=== PATIENT | male | born 1990 ===

== ENCOUNTER 2018-11-25 14:35 | Emergency (ER) | payer BC ==
[2018-11-25 14:57] VITALS: BMI 28.5
[2018-11-25 15:56] VITALS: O2SAT 99
--- NOTE | 2018-11-25 16:32 | C.PDOC ---
History Of Present Illness 28 y/o male presents to the ED with 2 day history of right-sided stabbing throat pain. Also reports pain radiating to the right outer ear. States he has been unable to tolerate normal diet the last few days, although he is drinking liquids today. Patient reports nausea and vomiting for the last 2 days. Admits he had no BM in the past 2 days, but had one this morning. Currently he denies any nausea, vomiting, diarrhea, or abdominal pain. Also reports fevers, chills, and cold sweats since the pain began, along with a tension headache. He denies any congestion, cough, SOB, or chest pain. Reports he is UTD on vaccines. Time Seen by Provider: 11/25/18 15:08 Chief Complaint (Nursing): ENT Problem History Per: Patient History/Exam Limitations: None Onset/Duration Of Symptoms: Days Current Symptoms Are (Timing): Still Present Symptoms Have Been: Continuous Past Medical History Reviewed: Historical Data, Nursing Documentation, Vital Signs Vital Signs: Last Vital Signs Temp 99 F 11/25/18 15:56 Pulse 104 H 11/25/18 15:56 Resp 17 11/25/18 15:56 BP 141/81 11/25/18 15:56 Pulse Ox 99 11/25/18 15:56 - Medical History PMH: No Chronic Diseases Surgical History: No Surg Hx Family History: States: No Known Family Hx - Social History Hx Tobacco Use: Yes Hx Alcohol Use: Yes Hx Substance Use: No - Immunization History Hx Tetanus Toxoid Vaccination: No Hx Influenza Vaccination: No Hx Pneumococcal Vaccination: No Review Of Systems Except As Marked, All Systems Reviewed And Found Negative. Constitutional: Positive for: Fever, Chills, Sweats ENT: Positive for: Ear Pain (Right), Throat Pain (Right). Negative for: Nose Discharge, Nose Congestion Respiratory: Negative for: Cough, Shortness of Breath Gastrointestinal: Negative for: Nausea (resolved), Vomiting (resolved), Abdominal Pain, Diarrhea Musculoskeletal: Negative for: Neck Pain Skin: Negative for: Rash Neurological: Positive for: Headache. Negative for: Weakness, Numbness, Dizziness Physical Exam - Physical Exam Appears: Non-toxic, No Acute Distress Skin: Warm, Dry, No Rash Head: Atraumatic, Normacephalic, Other (No sinus tenderness) Eye(s): bilateral: Normal Inspection, PERRL, EOMI Ear(s): Bilateral: Normal Oral Mucosa: Moist Throat: Erythema (+ pharyngeal erythema), No Exudate, Other (Uvula midline) Neck: Supple Lymphatic: Adenopathy (+ enlarged cervical/anterior lymph nodes on the right, TTP) Cardiovascular: Rhythm Regular (but slightly tachycardic), No Murmur Respiratory: Normal Breath Sounds, No Rales, No Rhonchi, No Wheezing Extremity: Bilateral: Atraumatic, Normal Color And Temperature, Normal ROM Neurological/Psych: Oriented x3, Normal Speech ED Course And Treatment O2 Sat by Pulse Oximetry: 99 (RA) Pulse Ox Interpretation: Normal Medical Decision Making Medical Decision Making: Impression: Throat pain, Fever Plan: Tylenol 975 mg PO given triage. Will treat patient for the flu and strep. Tamiflu and Penicillin VK given PO in the ED. Patient continues to complain of pain. Motrin 600 mg PO given. Disposition Counseled Patient/Family Regarding: Diagnosis, Need For Followup, Rx Given - Disposition Disposition: HOME/ ROUTINE Disposition Time: 16:52 Condition: STABLE Prescriptions: Ibuprofen [Motrin] 600 mg PO TID #15 tab Oseltamivir Cap [Tamiflu] 1 cap PO BID #10 cap Penicillin VK [Penicillin VK Tab] 2 tab PO BID #28 tab Instructions: Sore Throat, Adult (DC) Forms: [facility] (Kyrgyz), [facility] (Swedish), General Discharge Instructions, School Excuse - POA Present On Arrival: None - Clinical Impression Clinical Impression: Strep pharyngitis, Influenza-like illness - Scribe Statement The provider has reviewed the documentation as recorded by the Kerri Garber Provider Attestation: All medical record entries made by the Kerri were at my direction and personally dictated by me. I have reviewed the chart and agree that the record accurately reflects my personal performance of the history, physical exam, medical decision making, and the department course for this patient. I have also personally directed, reviewed, and agree with the discharge instructions and disposition.
[2018-11-25 17:06] VITALS: BP 128/82; PULSE 96; RESP 18; TEMP 99.1
== END 2018-11-25 17:05 | disposition home or self-care (01) ==
LOC: C.ER 14:35
DX: J11.1 Influenza due to unidentified influenza virus with other respiratory manifestations (principal); Z72.0 Tobacco use

== ENCOUNTER 2018-12-06 09:07 | Outpatient (CLI) | payer BC | END 2018-12-06 09:08 | disposition home or self-care (01) | LOC: C.CARD 09:07 | DX: E66.3 Overweight (principal) ==